=== PATIENT | female | born 1965 | race Hispanic/Latino ===

== ENCOUNTER 2021-06-25 20:16 | Emergency (ER) | payer BC ==
[~2021-06-25] VITALS: Ht 152.4 cm; Wt 62.0 kg
[2021-06-25 20:50] LABS: HEMATOCRIT 34.1 % (37.0-47.0); HEMOGLOBIN 11.4 g/dl (12.0-16.0); IMMATURE GRANULOCYTES 0.2 % (0.0-5.0); MEAN CELL VOLUME 94.5 fL CALC (80.0-100.0); MEAN CORPUSCULAR HGB 31.6 pG CALC (26.0-32.0); MEAN CORPUSCULAR HGB CONC 33.4 g/dL CAL (32.0-36.0); NEUT# 3.02 thou/uL (2.00-7.15); RED BLOOD COUNT 3.61 mill/uL (4.20-5.60); RED CELL DISTRI WIDTH 12.9 % (11.5-15.5)
[2021-06-25 21:44] LABS: ALBUMIN 3.6 g/dL (3.2-5.0); ALKALINE PHOSPHATASE 42 u/l (38-126); ANION GAP 9 (6-22 (CALC)); BILIRUBIN, TOTAL 0.3 mg/dL (0.0-1.4); BUN 13 mg/dL (7-17); BUN/CREATININE RATIO 22 (12-20 (CALC)); CARBON DIOXIDE 27 mmol/l (22-30); CHLORIDE 92 mmol/l (95-108); CREATININE 0.6 mg/dL (0.5-1.0); GFR > 60 ML/MIN (>=60 (CALC)); GFR FOR AFR.AMER. > 60 ML/MIN (>=60 (CALC)); POTASSIUM 3.7 mmol/l (3.5-5.1); SGOT/AST 49 u/l (14-36); SODIUM 124 mmol/l (137-146); TOTAL PROTEIN 6.6 g/dL (6.3-8.2)
[2021-06-25 21:56] LABS: MYOGLOBIN 81 ng/mL (0 - 62)
[2021-06-25] MEDS ORDERED: LISINOPRIL10 MG PO (22:06)
[2021-06-25] MEDS ORDERED: ENTYVIO300 MG SC (22:09)
[2021-06-25 23:34] LABS: URINE BILIRUBIN - DIPSTICK NEGATIVE (NEGATIVE); URINE BLOOD DIPSTICK NEGATIVE (NEGATIVE); URINE COLOR YELLOW; URINE GLUCOSE - DIPSTICK NEGATIVE (NEGATIVE); URINE KETONE TRACE mg/dL (NEGATIVE); URINE LEUK ESTERASE NEGATIVE (NEGATIVE); URINE PROTEIN - DIPSTICK NEGATIVE (NEG-TRACE); URINE UROBILINOGEN - DIPSTICK 0.2 E.U./dL (0.2)
[2021-06-25 23:43] LABS: URINE NITRITE - DIPSTICK NEGATIVE (Negative)
[2021-06-26] MEDS ORDERED: ZITHROMAX250 MG PO (01:54)
[2021-06-26] MEDS ORDERED: Levaquin PO ×2 (02:09→09:50)
[2021-06-26 02:37] VITALS: BP 104/57
== END 2021-06-26 02:40 | disposition home or self-care (01) | DRG 177 ==
LOC: ED 20:16
PROVIDERS: Emergency Medicine
DX: U07.1 COVID-19 (principal); J12.82 Pneumonia due to coronavirus disease 2019; E87.1 Hypo-osmolality and hyponatremia; K50.90 Crohn's disease, unspecified, without complications
CPT/HCPCS: J1956; Q9967

== ENCOUNTER 2021-06-27 12:44 | Observation (INO) | payer BC ==
[~2021-06-27] VITALS: Ht 152.4 cm; Wt 59.0 kg
[~2021-06-27 12:44] MED LIST: ENTYVIO300 MG SC; LISINOPRIL10 MG PO; Levaquin PO; ZITHROMAX250 MG PO
[2021-06-27 13:57] LABS: HEMOGLOBIN 12.4 g/dl (12.0-16.0); IMMATURE GRANULOCYTES 0.5 % (0.0-5.0); MEAN CELL VOLUME 93.9 fL CALC (80.0-100.0); MEAN CORPUSCULAR HGB 31.5 pG CALC (26.0-32.0); MEAN CORPUSCULAR HGB CONC 33.5 g/dL CAL (32.0-36.0); NEUT# 4.36 thou/uL (2.00-7.15); RED BLOOD COUNT 3.94 mill/uL (4.20-5.60); RED CELL DISTRI WIDTH 12.9 % (11.5-15.5)
[2021-06-27 14:15] LABS: ALBUMIN 3.8 g/dL (3.2-5.0); ALKALINE PHOSPHATASE 43 u/l (38-126); ANION GAP 12 (6-22 (CALC)); BILIRUBIN, TOTAL 0.3 mg/dL (0.0-1.4); BUN 11 mg/dL (7-17); BUN/CREATININE RATIO 21 (12-20 (CALC)); CARBON DIOXIDE 25 mmol/l (22-30); CHLORIDE 93 mmol/l (95-108); CREATININE 0.5 mg/dL (0.5-1.0); GFR > 60 ML/MIN (>=60 (CALC)); GFR FOR AFR.AMER. > 60 ML/MIN (>=60 (CALC)); MAGNESIUM 1.5 mg/dL (1.6-2.3); POTASSIUM 3.8 mmol/l (3.5-5.1); SGOT/AST 55 u/l (14-36); SODIUM 126 mmol/l (137-146); TOTAL PROTEIN 7.1 g/dL (6.3-8.2)
[2021-06-27 19:00] VITALS: BP 92/51
[2021-06-28] VITALS: BP 106/52
[2021-06-28 04:00] VITALS: BP 117/69
[2021-06-28 06:33] LABS: HEMATOCRIT 36.1 % (37.0-47.0); HEMOGLOBIN 11.7 g/dl (12.0-16.0); IMMATURE GRANULOCYTES 0.4 % (0.0-5.0); MEAN CELL VOLUME 97.3 fL CALC (80.0-100.0); MEAN CORPUSCULAR HGB 31.5 pG CALC (26.0-32.0); MEAN CORPUSCULAR HGB CONC 32.4 g/dL CAL (32.0-36.0); NEUT# 5.76 thou/uL (2.00-7.15); RED BLOOD COUNT 3.71 mill/uL (4.20-5.60); RED CELL DISTRI WIDTH 13.1 % (11.5-15.5)
[2021-06-28 06:53] LABS: ALBUMIN 3.3 g/dL (3.2-5.0); ALKALINE PHOSPHATASE 40 u/l (38-126); BILIRUBIN, TOTAL 0.2 mg/dL (0.0-1.4); BUN 10 mg/dL (7-17); BUN/CREATININE RATIO 24 (12-20 (CALC)); CARBON DIOXIDE 24 mmol/l (22-30); CHLORIDE 103 mmol/l (95-108); CREATININE 0.4 mg/dL (0.5-1.0); GFR > 60 ML/MIN (>=60 (CALC)); GFR FOR AFR.AMER. > 60 ML/MIN (>=60 (CALC)); POTASSIUM 4.4 mmol/l (3.5-5.1); SGOT/AST 50 u/l (14-36)
[2021-06-28 06:56] LABS: ANION GAP 11 (6-22 (CALC)); SODIUM 134 mmol/l (137-146)
[2021-06-28 07:32] VITALS: BP 114/68
[2021-06-28 10:32] VITALS: BP 112/70
[2021-06-28 10:34] VITALS: BP 112/70
[2021-06-28] MEDS ORDERED: ZOFRAN4 MG/TAB PO (12:09)
[2021-06-28] MEDS ORDERED: AZITHROMYCIN500 MG PO (12:10)
== END 2021-06-28 16:03 | disposition home or self-care (01) | DRG 177 ==
LOC: ED 12:44 → ED-I 16:36 → ED 16:55 → MS2 16:56
PROVIDERS: Family Medicine; ADMIT Hospitalist; ATTEND Hospitalist
DX: U07.1 COVID-19 (principal); J12.82 Pneumonia due to coronavirus disease 2019; E87.1 Hypo-osmolality and hyponatremia; K50.90 Crohn's disease, unspecified, without complications; E87.6 Hypokalemia; I10 Essential (primary) hypertension
CPT/HCPCS: G0378; J1650; J3475

== ENCOUNTER 2021-07-05 10:49 | Emergency (ER) | payer BC ==
[~2021-07-05] VITALS: Ht 152.4 cm; Wt 59.0 kg
[~2021-07-05 10:49] MED LIST changes: +AZITHROMYCIN500 MG PO; +ZOFRAN4 MG/TAB PO
[2021-07-05 13:12] LABS: HEMATOCRIT 39.5 % (37.0-47.0); IMMATURE GRANULOCYTES 0.5 % (0.0-5.0); MEAN CELL VOLUME 95.2 fL CALC (80.0-100.0); MEAN CORPUSCULAR HGB 31.3 pG CALC (26.0-32.0); MEAN CORPUSCULAR HGB CONC 32.9 g/dL CAL (32.0-36.0); NEUT# 9.13 thou/uL (2.00-7.15); RED BLOOD COUNT 4.15 mill/uL (4.20-5.60); RED CELL DISTRI WIDTH 12.9 % (11.5-15.5)
[2021-07-05 13:31] LABS: ALBUMIN 4.1 g/dL (3.2-5.0); ALKALINE PHOSPHATASE 54 u/l (38-126); AMYLASE 105 u/l (30-110); ANION GAP 12 (6-22 (CALC)); BILIRUBIN, TOTAL 0.5 mg/dL (0.0-1.4); BUN 20 mg/dL (7-17); BUN/CREATININE RATIO 29 (12-20 (CALC)); CARBON DIOXIDE 27 mmol/l (22-30); CHLORIDE 97 mmol/l (95-108); CREATININE 0.7 mg/dL (0.5-1.0); GFR > 60 ML/MIN (>=60 (CALC)); GFR FOR AFR.AMER. > 60 ML/MIN (>=60 (CALC)); LIPASE 203 u/l (23-300); POTASSIUM 3.7 mmol/l (3.5-5.1); SGOT/AST 31 u/l (14-36); SODIUM 133 mmol/l (137-146); TOTAL PROTEIN 7.7 g/dL (6.3-8.2)
[2021-07-05 13:42] LABS: MYOGLOBIN 37 ng/mL (0 - 62)
[2021-07-05 14:11] VITALS: BP 101/67
== END 2021-07-05 14:35 | disposition home or self-care (01) | DRG 948 ==
LOC: ED 10:49
PROVIDERS: Emergency Medicine
DX: R53.1 Weakness (principal); I95.9 Hypotension, unspecified; I10 Essential (primary) hypertension; K50.90 Crohn's disease, unspecified, without complications; Z86.16 Personal history of COVID-19